=== PATIENT | female | born 1985 | race Caucasian/White ===

== ENCOUNTER 2016-07-22 02:41 | Emergency (ER) | payer OTHER, SELFPAY ==
[2016-07-22 04:29] LABS: BASO # 0.1 K/mm3 (0.0-0.2); BASO % 0.7 % (0.0-1.0); EOS # 0.4 K/mm3 (0.0-0.50); EOS % 3.9 % (0.0-3.0); LARGE UNSTAINED CELL # 0.3 K/mm3 (0.0-0.4); LARGE UNSTAINED CELL % 2.8 % (0.0-4.0); LYMPH % 42.1 % (24.0-44.0); MEAN CORPUSCULAR HEMOGLOBIN 29.8 pg (27.0-33.0); MEAN CORPUSCULAR VOLUME 90.3 fl (80.0-96.0); MONO # 0.6 K/mm3 (0.0-0.8); MONO % 5.7 % (0.0-5.0); NEUTROPHILS # 4.3 K/mm3 (1.8-7.7); NEUTROPHILS % 44.9 % (36.0-66.0); PLATELET COUNT, AUTOMATED 365 k/mm3 (150-450); RED CELL DISTRIBUTION WIDTH 13.2 % (11.5-14.5); WHITE BLOOD COUNT 9.6 K/mm3 (4.0-10.0)
[2016-07-22] MEDS ORDERED: ISOVUE-370 76% 100ML VIAL (Q9967) As Ordered ONE (04:36)
[2016-07-22 04:39] LABS: ALBUMIN 4.4 GM/DL (3.2-5.2); ALBUMIN/GLOBULIN RATIO 1.33 (1.00-1.93); ALKALINE PHOSPHATASE 56 U/L (45-117); ALT/SGPT 30 U/L (12-78); AMYLASE 39 U/L (25-115); ANION GAP 14 MEQ/L (8-16); AST/SGOT 34 U/L (15-37); BILIRUBIN,DIRECT < 0.1 MG/DL (0.0-0.2); BILIRUBIN,TOTAL 0.2 MG/DL (0.2-1.0); BLOOD UREA NITROGEN 14 MG/DL (7-18); CALCIUM LEVEL 8.4 MG/DL (8.5-10.1); CARBON DIOXIDE LEVEL 22 MEQ/L (21-32); CHLORIDE LEVEL 106 MEQ/L (98-107); GLOMERULAR FILTRATION RATE > 60.0 (>60); GLUCOSE, FASTING 87 MG/DL (70-105); POTASSIUM SERUM 3.6 MEQ/L (3.5-5.1); SODIUM LEVEL 142 MEQ/L (136-145); TOTAL PROTEIN 7.7 GM/DL (6.4-8.2)
[2016-07-22] MEDS ORDERED: KETOROLAC 30 MG/ML VIAL (J1885) As Ordered ONE (04:59)
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
--- NOTE | 2016-07-22 08:58 | REP ---
Clinical: Trauma. Technique: AP and lateral views of the left humerus. Findings: No acute fracture dislocation. Skeletal structures, joint spaces, and surrounding soft tissues are normal. Impression: Normal left humerus. No acute fracture or dislocation. Signed by Howard Zhong MD 07/22/2016 08:50 A
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
== END 2016-07-22 07:09 | disposition home or self-care (01) ==
LOC: M ED 02:41
DX: S00.81XA Abrasion of other part of head, initial encounter (principal); Y04.8XXA Assault by other bodily force, initial encounter; X58.XXXA Exposure to other specified factors, initial encounter; Y92.019 Unspecified place in single-family (private) house as the place of occurrence of the external cause; Y93.9 Activity, unspecified; Y99.9 Unspecified external cause status; M47.892 Other spondylosis, cervical region; J01.90 Acute sinusitis, unspecified; Z85.41 Personal history of malignant neoplasm of cervix uteri; Z79.899 Other long term (current) drug therapy; Z88.1 Allergy status to other antibiotic agents; Z88.8 Allergy status to other drugs, medicaments and biological substances; Z88.5 Allergy status to narcotic agent; Z91.02 Food additives allergy status
CPT/HCPCS: 70450; 70486; 71260; 72125; 72128; 73020; 73060; 74177; 80048; 80076; 82150; 82550; 82553; 83690; 85025; 93041; 96374; 99284; J1885; Q9967

== ENCOUNTER 2016-07-23 12:11 | Emergency (ER) | payer OTHER, SELFPAY ==
[2016-07-23] MEDS ORDERED: FLUORESCEIN OPHTH 1 MG STRIP As Ordered ONE (13:10)
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
== END 2016-07-23 14:04 | disposition home or self-care (01) ==
LOC: M ED 12:11
DX: S10.93XD Contusion of unspecified part of neck, subsequent encounter (principal); Y04.8XXD Assault by other bodily force, subsequent encounter; Y92.019 Unspecified place in single-family (private) house as the place of occurrence of the external cause; Y93.89 Activity, other specified; Y99.8 Other external cause status; H10.32 Unspecified acute conjunctivitis, left eye; C53.9 Malignant neoplasm of cervix uteri, unspecified; G43.909 Migraine, unspecified, not intractable, without status migrainosus; Q63.0 Accessory kidney; N83.299 Other ovarian cyst, unspecified side; Z87.440 Personal history of urinary (tract) infections; Z87.891 Personal history of nicotine dependence; Z79.899 Other long term (current) drug therapy; Z88.1 Allergy status to other antibiotic agents; Z88.5 Allergy status to narcotic agent; Z88.8 Allergy status to other drugs, medicaments and biological substances; Z91.09 Other allergy status, other than to drugs and biological substances